=== PATIENT | male | born 1975 | race Two or more races ===

== ENCOUNTER 2018-10-07 19:04 | Emergency (ER) | payer SELFPAY ==
[~2018-10-07] VITALS: Ht 167.6 cm; Wt 78.8 kg
[2018-10-07 19:22] VITALS: BP 113/76
[2018-10-07] MEDS ORDERED: PLEASE ENTER ALLERGIES MC SCH (19:30)
[2018-10-07] MEDS ORDERED: THIAMINE 100MG TABLET PO ONE (19:30)
[2018-10-07] MEDS ORDERED: PLEASE ENTER HEIGHT AND WEIGHT MC SCH (19:30)
[2018-10-07 19:41] LABS: MEAN CORPUSCULAR HEMOGLOBIN 28.4 pg (27.5-34.5); MEAN CORPUSCULAR VOLUME 88.7 fL (81-97); MEAN PLATELET VOLUME 7.5 fL (7.4-10.4); PLATELET COUNT 209 x10^3/uL (130-400); RED BLOOD COUNT 4.78 x10^6/uL (4.38-5.82); RED CELL DISTRIBUTION WIDTH 23.4 % (9.4-14.8)
[2018-10-07 19:47] LABS: ALBUMIN 3.3 g/dL (3.4-5.0); ANION GAP 11 mmol/L (5-15); CALCIUM 7.6 mg/dL (8.5-10.1); CHLORIDE 110 mmol/L (98-107); CREATININE 0.79 mg/dL (0.7-1.3)
[2018-10-07 19:52] LABS: ALANINE AMINOTRANSFERASE 97 U/L (12-78); ALKALINE PHOSPHATASE 76 U/L (45-117); BILIRUBIN,TOTAL 0.6 mg/dL (0.2-1.0); TOTAL PROTEIN 7.6 g/dL (6.4-8.2)
--- NOTE | 2018-10-07 19:56 | NUR ---
lab called debbie 0.497 made aware
[2018-10-07 19:58] LABS: MD YES
[2018-10-07 20:01] LABS: BAND#(MANUAL) 0.04 x10^3/uL; BANDS%(MANUAL) 1 % (0-7); EOS#(MANUAL) 0.04 x10^3/uL (0.0-0.4); EOS% (MANUAL) 1 % (1-7); LYMPH#(MANUAL) 2.01 x10^3/uL (1-3.4); LYMPHS% (MANUAL) 53 % (22-44); MONOS#(MANUAL) 0.11 x10^3/uL (0.3-2.7); MONOS% (MANUAL) 3 % (2-9); SEGS% (MANUAL) 42 % (42-75)
[2018-10-07 20:02] LABS: <PLATELET ESTIMATE> ADEQUATE; <PLT MORPHOLOGY> NORMAL PLT MORPH; <RBC MORPHOLOGY> NORMAL
[2018-10-07] MEDS ORDERED: THIAMINE 100MG TABLET ONE (20:09)
== END 2018-10-07 21:33 | disposition home or self-care (01) ==
LOC: ED 21:28
DX: F10.220 Alcohol dependence with intoxication, uncomplicated (principal)
CPT/HCPCS: 36415; 80053; 80307; 85025; 99283

== ENCOUNTER 2018-12-10 18:38 | Emergency (ER) | payer SELFPAY ==
[~2018-12-10] VITALS: Ht 167.6 cm; Wt 75.0 kg
--- NOTE | 2018-12-10 18:56 | NUR ---
REPORT RECIEVED FROM DEMETRIUS CAZARES
[2018-12-10 19:47] VITALS: BP 114/81
--- NOTE | 2018-12-10 20:07 | NUR ---
PT INTOXICATED. CONTINUALLY TRYING TO GET OUT OF BED EVEN WHEN INSTRUCTED NOT TO. DIESEL ENGINE OPERATOR NOTIFIED TO WATCH PT ON MONITOR. PT AGREED TO STAY IN BED. PT SLEEPING ON GURNEY NOW.
== END 2018-12-10 22:25 | disposition home or self-care (01) ==
LOC: ED 22:20
DX: F10.220 Alcohol dependence with intoxication, uncomplicated (principal); Y90.9 Presence of alcohol in blood, level not specified
CPT/HCPCS: 99283

== ENCOUNTER 2019-05-25 04:52 | Inpatient (IN) | payer OTHER ==
[~2019-05-25] VITALS: Ht 167.6 cm; Wt 85.8 kg
[2019-05-25] MEDS ORDERED: SODIUM CHLORIDE 0.9% 1,000ML IVBOLUS ONE (05:30)
[2019-05-25] MEDS ORDERED: LORazepam 2 MG/ML, 1ML IVPush ONE ×3 (05:30→09:00)
[2019-05-25] MEDS ORDERED: LORazepam 2 MG/ML, 1ML ONE ×3 (05:30→09:04)
[2019-05-25 05:55] LABS: CHLORIDE 105 mmol/L (98-107)
--- NOTE | 2019-05-25 06:00 | NUR ---
Patient presents to ER c/o alcohol withdrawals. Patient states his last drink was yesterday. He was participating in outpatient detox programs but started drinking during it. Patient wants help to detox. Patient is moderately tremulous and slightly diaphoretic. Respirations even and unlabored.
[2019-05-25 06:03] LABS: ALANINE AMINOTRANSFERASE 72 U/L (12-78); ALBUMIN 3.4 g/dL (3.4-5.0); ALKALINE PHOSPHATASE 72 U/L (45-117); ANION GAP 13 mmol/L (5-15); BILIRUBIN,TOTAL 0.8 mg/dL (0.2-1.0); CALCIUM 8.4 mg/dL (8.5-10.1); CREATININE 0.87 mg/dL (0.7-1.3); TOTAL PROTEIN 8.2 g/dL (6.4-8.2)
[2019-05-25 06:08] LABS: MEAN CORPUSCULAR HEMOGLOBIN 25.8 pg (27.5-34.5); MEAN CORPUSCULAR HGB CONC 32.1 g/dL (33.2-36.2); MEAN CORPUSCULAR VOLUME 80.5 fL (81-97); MEAN PLATELET VOLUME 8.6 fL (7.4-10.4); PLATELET COUNT 123 x10^3/uL (130-400); RED BLOOD COUNT 4.53 x10^6/uL (4.38-5.82)
[2019-05-25 06:28] LABS: BASOPHILS # (AUTO) 0.04 x10^3/uL (0-0.1); BASOPHILS % (AUTO) 1 % (0-1); EOSINOPHILS # (AUTO) 0.03 x10^3/uL (0-0.4); EOSINOPHILS % (AUTO) 1 % (1-7); LYMPHOCYTES # (AUTO) 1.45 x10^3/uL (1-3.4); LYMPHOCYTES % (AUTO) 33 % (22-44); MD SCAN; MONOCYTES # (AUTO) 0.35 x10^3/uL (0.2-0.8); MONOCYTES % (AUTO) 8 % (2-9); NEUTROPHILS # (AUTO) 2.55 x10^3/uL (1.8-6.8); NEUTROPHILS % (AUTO) 58 % (42-75)
--- NOTE | 2019-05-25 06:57 | NUR ---
BEDSIDE REPORT FROM KAR ROMO, PT RESTING IN [facility] ON MONITOR WITH CALL LIGHT WIHTIN REACH. PT TO RECIEVE ADDITIONAL MEDICATIONS AND BE DISCHARGED BACK TO OUTPATIENT TREATMENT CENTER.
--- NOTE | 2019-05-25 07:07 | NUR ---
PER GIVE LIBRIUM 30 MIN AFTER IV ATIVAN
[2019-05-25] MEDS ORDERED: CHLORDIAZEPOXIDE 25 MG CAPSULE ONE (07:30)
[2019-05-25] MEDS ORDERED: CHLORDIAZEPOXIDE 25 MG CAPSULE PO ONE (07:30)
[2019-05-25] MEDS ORDERED: DIAZEPAM 5 MG/ML, 2ML IV ONE (08:00)
[2019-05-25] MEDS ORDERED: DIAZEPAM 5 MG/ML, 2ML ONE (08:04)
--- NOTE | 2019-05-25 08:10 | NUR ---
per MD give additional medications and reassess CIWA score. Pt medciated per mar. pt given urinal and urine sample walked to lab. pt resting in [facility] with call light within reach.
[2019-05-25 08:47] LABS: AMPHETAMINE SCREEN, URINE Negative (Negative); BARBITURATE SCREEN, URINE Negative (Negative); BENZODIAZEPINE SCREEN, URINE Negative (Negative); CANNABINOID SCREEN, URINE Negative (Negative); COCAINE SCREEN, URINE Negative (Negative); METHADONE SCREEN, URINE Negative (Negative); OPIATE SCREEN, URINE Negative (Negative)
--- NOTE | 2019-05-25 09:09 | NUR ---
Break RN note: Pt medicated with Ativan per MAR. Pt visibly tremulous throughout body, states "I still feel the same as I did when I first came in but maybe a little better." Pt able to position self for comfort, denies other needs.
[2019-05-25] MEDS ORDERED: MAGNESIUM SULFATE PMX 2GM/50ML 50 ML IV ONE (10:00)
[2019-05-25] MEDS ORDERED: MAGNESIUM SULFATE PMX 2GM/50ML 50 ML ONE (10:01)
--- NOTE | 2019-05-25 10:05 | NUR ---
PTS CIWA 17 AFTER ADDITIONAL DOSE OF ATIVAN, NOTIFIED. PT TO BE ADMITTED.
[2019-05-25] MEDS ORDERED: BACLOFEN 10 MG TABLET PO PRN (10:30)
[2019-05-25] MEDS ORDERED: ACETAMINOPHEN 325 MG TABLET PO PRN (10:30)
[2019-05-25] MEDS ORDERED: LORazepam 1MG TABLET PO PRN (10:30)
[2019-05-25] MEDS ORDERED: THIAMINE 200 MG in DEXTROSE 5% 50 ML IVPB ONE (10:30)
[2019-05-25] MEDS ORDERED: LORazepam 0.5MG TABLET PO PRN (10:30)
[2019-05-25] MEDS ORDERED: IBUPROFEN 600 MG TABLET PO PRN (10:30)
[2019-05-25] MEDS ORDERED: FOLIC ACID 5 MG/ML IM ONE (10:30)
[2019-05-25] MEDS ORDERED: KETOROLAC 30 MG/1 ML IV PRN (10:30)
[2019-05-25] MEDS ORDERED: morphine SULFATE 10 MG/ML, 1ML IVPush PRN (10:30)
[2019-05-25] MEDS ORDERED: ONDANSETRON 2MG/ML, 2ML IVPush PRN (10:30)
[2019-05-25] MEDS ORDERED: LORazepam 2 MG/ML, 1ML IV PRN ×4 (10:30)
[2019-05-25] MEDS ORDERED: hydrALAzine 20 MG/ML, 1ML IVPush PRN (10:30)
[2019-05-25] MEDS ORDERED: ONDANSETRON ODT 4 MG PO PRN (10:30)
--- NOTE | 2019-05-25 11:05 | NUR ---
ATIVAN HELD FOR PT RESP 10, PT SLEEPING IN BED. ON MONITOR. ON ROOM AIR. CALL LIGHT WITHIN REACH.
[2019-05-25] MEDS ORDERED: LORazepam 1MG TABLET ONE (12:13)
[2019-05-25] MEDS: LORazepam 2 MG/ML, 1ML IV PRN ×3 (12:15→22:06)
--- NOTE | 2019-05-25 12:16 | NUR ---
PT MEDICATED PER MAR FOR CIWA SCORE OF 11
--- NOTE | 2019-05-25 12:42 | NUR ---
ATTEMPTED TO CALL REPORT, NO ANSWER
--- NOTE | 2019-05-25 13:14 | NUR ---
ATTEMPT TO CALL REPORT X2, PLACED ON HOLD >8MIN
--- NOTE | 2019-05-25 13:29 | NUR ---
REPORT TO CRISTAL ROMO
[2019-05-25] MEDS: LORazepam 1MG TABLET PO PRN ×2 (14:05→15:29)
[2019-05-25] MEDS ORDERED: SERT50TA PO (14:24)
[2019-05-25] MEDS ORDERED: TRAZ-96 PO (14:24)
[2019-05-25] MEDS ORDERED: THIAMINE 100MG TABLET PO ONE (14:30)
[2019-05-25] MEDS ORDERED: FOLIC ACID 1 MG TABLET PO ONE (14:30)
[2019-05-25 15:05] VITALS: BP 162/99
[2019-05-25] MEDS: CHLORDIAZEPOXIDE 25 MG CAPSULE PO SCH ×2 (15:29→22:06)
[2019-05-25] MEDS: D5%-0.45NACL+KCL 20MEQ 1,000 ML IV SCH (17:56)
[2019-05-25] MEDS: ENOXAPARIN 40 MG/0.4 ML SQ SCH (18:52)
[2019-05-25 20:26] VITALS: BP 130/84
[2019-05-26 01:18] VITALS: BP 129/85
[2019-05-26] MEDS: D5%-0.45NACL+KCL 20MEQ 1,000 ML IV SCH ×2 (04:23→15:36)
[2019-05-26] MEDS: CHLORDIAZEPOXIDE 25 MG CAPSULE PO SCH ×4 (04:24→22:19)
[2019-05-26 06:19] LABS: LYMPHOCYTES % (AUTO) 31 % (22-44); MEAN CORPUSCULAR HGB CONC 32.4 g/dL (33.2-36.2); MEAN CORPUSCULAR VOLUME 80.2 fL (81-97); MEAN PLATELET VOLUME 9.3 fL (7.4-10.4); NEUTROPHILS % (AUTO) 60 % (42-75); PLATELET COUNT 109 x10^3/uL (130-400); RED BLOOD COUNT 4.81 x10^6/uL (4.38-5.82); RED CELL DISTRIBUTION WIDTH 22.6 % (9.4-14.8)
[2019-05-26 06:20] LABS: BASOPHILS % (AUTO) 0 % (0-1); EOSINOPHILS # (AUTO) 0.05 x10^3/uL (0-0.4); EOSINOPHILS % (AUTO) 2 % (1-7); LYMPHOCYTES # (AUTO) 0.95 x10^3/uL (1-3.4); MD SCAN; MONOCYTES # (AUTO) 0.23 x10^3/uL (0.2-0.8); MONOCYTES % (AUTO) 7 % (2-9); NEUTROPHILS # (AUTO) 1.87 x10^3/uL (1.8-6.8)
[2019-05-26 06:21] LABS: CHLORIDE 106 mmol/L (98-107)
[2019-05-26 06:28] LABS: % IRON SATURATION 16 % (20-55); ALANINE AMINOTRANSFERASE 67 U/L (12-78); ALKALINE PHOSPHATASE 67 U/L (45-117); ANION GAP 6 mmol/L (5-15); CALCIUM 8.2 mg/dL (8.5-10.1); CREATININE 0.62 mg/dL (0.7-1.3); IRON LEVEL 70 mcg/dL (65-175); TOTAL IRON BINDING CAPACITY 451 mcg/dL (250-450); TOTAL PROTEIN 7.9 g/dL (6.4-8.2)
[2019-05-26] MEDS: LORazepam 1MG TABLET PO PRN ×2 (08:25→10:45)
[2019-05-26 10:49] VITALS: BP 134/94
[2019-05-26] MEDS: LORazepam 2 MG/ML, 1ML IV PRN ×5 (11:45→22:53)
[2019-05-26 14:00] VITALS: BP 134/62
[2019-05-26] MEDS: FERROUS SULFATE 325 MG TABLET PO SCH (15:36)
[2019-05-26] MEDS: ENOXAPARIN 40 MG/0.4 ML SQ SCH (18:34)
[2019-05-26 20:14] VITALS: BP 142/93
[2019-05-27 02:06] VITALS: BP 158/87
[2019-05-27] MEDS: LORazepam 2 MG/ML, 1ML IV PRN ×2 (02:25→08:27)
[2019-05-27] MEDS: D5%-0.45NACL+KCL 20MEQ 1,000 ML IV SCH ×2 (02:27→12:17)
[2019-05-27] MEDS: CHLORDIAZEPOXIDE 25 MG CAPSULE PO SCH (04:03)
[2019-05-27 06:19] VITALS: BP 138/95
[2019-05-27] MEDS: FERROUS SULFATE 325 MG TABLET PO SCH ×2 (08:26→12:17)
[2019-05-27] MEDS ORDERED: THIAMINE 100MG TABLET PO SCH (09:00)
[2019-05-27] MEDS ORDERED: FOLIC ACID 1 MG TABLET PO SCH (09:00)
[2019-05-27] MEDS ORDERED: CHLORDIAZEPOXIDE 25 MG CAPSULE PO SCH (12:30)
[2019-05-27 13:05] VITALS: BP 136/93
[2019-05-27] MEDS ORDERED: FOLI-17 PO (16:08)
[2019-05-27] MEDS ORDERED: FERR-51 PO (16:08)
[2019-05-27] MEDS ORDERED: THIA100T67 PO (16:08)
== END 2019-05-27 17:19 | disposition home or self-care (01) | DRG 897 ==
LOC: ED 05:46 → EDIP 10:00 → 4EST 13:57
PROVIDERS: ADMIT Hospitalist; ATTEND Hospitalist
DX: F10.239 Alcohol dependence with withdrawal, unspecified (principal); E87.1 Hypo-osmolality and hyponatremia; E87.2 Acidosis; D61.818 Other pancytopenia; D50.9 Iron deficiency anemia, unspecified; F17.200 Nicotine dependence, unspecified, uncomplicated; F32.9 Major depressive disorder, single episode, unspecified; E87.6 Hypokalemia; E83.42 Hypomagnesemia; R00.0 Tachycardia, unspecified; R74.0 Nonspecific elevation of levels of transaminase and lactic acid dehydrogenase [LDH]; Z90.49 Acquired absence of other specified parts of digestive tract
CPT/HCPCS: 36415; 71045; 80053; 80307; 82728; 83540; 83550; 83735; 84100; 85025; 93005; 99285; G0378; J1650; J3360; J2060; J3475; J3480; J7030

== ENCOUNTER 2019-06-28 17:09 | Emergency (ER) | payer MEDICAID ==
[~2019-06-28] VITALS: Ht 167.6 cm; Wt 87.9 kg
[~2019-06-28 17:09] MED LIST: FERR-51 PO; FOLI-17 PO; SERT50TA PO; THIA100T67 PO; TRAZ-96 PO
[2019-06-28] MEDS ORDERED: SODIUM CHLORIDE 0.9% 1,000ML IVBOLUS ONE (17:30)
[2019-06-28] MEDS ORDERED: LORazepam 2 MG/ML, 1ML IVPush ONE (17:30)
[2019-06-28] MEDS ORDERED: LORazepam 2 MG/ML, 1ML ONE (17:35)
[2019-06-28 17:57] LABS: ALANINE AMINOTRANSFERASE 66 U/L (12-78); ALBUMIN 3.2 g/dL (3.4-5.0); ANION GAP 10 mmol/L (5-15); CALCIUM 8.5 mg/dL (8.5-10.1); CHLORIDE 96 mmol/L (98-107); CREATININE 0.99 mg/dL (0.7-1.3)
[2019-06-28 17:59] LABS: ALKALINE PHOSPHATASE 68 U/L (45-117); BILIRUBIN,TOTAL 0.8 mg/dL (0.2-1.0); TOTAL PROTEIN 8.6 g/dL (6.4-8.2)
[2019-06-28 18:05] LABS: BASOPHILS # (AUTO) 0.03 x10^3/uL (0-0.1); BASOPHILS % (AUTO) 0 % (0-1); EOSINOPHILS # (AUTO) 0.04 x10^3/uL (0-0.4); EOSINOPHILS % (AUTO) 0 % (1-7); LYMPHOCYTES # (AUTO) 0.94 x10^3/uL (1-3.4); LYMPHOCYTES % (AUTO) 11 % (22-44); MD NO; MEAN CORPUSCULAR HEMOGLOBIN 27.3 pg (27.5-34.5); MEAN CORPUSCULAR HGB CONC 33.5 g/dL (33.2-36.2); MEAN CORPUSCULAR VOLUME 81.4 fL (81-97); MEAN PLATELET VOLUME 8.5 fL (7.4-10.4); MONOCYTES # (AUTO) 0.34 x10^3/uL (0.2-0.8); MONOCYTES % (AUTO) 4 % (2-9); NEUTROPHILS # (AUTO) 7.53 x10^3/uL (1.8-6.8); NEUTROPHILS % (AUTO) 85 % (42-75); PLATELET COUNT 155 x10^3/uL (130-400); RED BLOOD COUNT 4.81 x10^6/uL (4.38-5.82)
[2019-06-28 19:00] LABS: RAPID INFLUENZA A Negative (Negative); RAPID INFLUENZA B Negative (Negative)
[2019-06-28] MEDS ORDERED: IBUPROFEN 200 MG TABLET PO ONE (19:00)
[2019-06-28] MEDS ORDERED: ACETAMINOPHEN 500 MG TABLET PO ONE (19:00)
--- NOTE | 2019-06-28 19:00 | NUR ---
REPORT RECEIVED FROM DEMETRIUS HIRSCH. ASSUMED CARE OF PT AT THIS TIME. PT AO X 4. SKIN WARM AND DRY. RESP EVEN AND UNLABORED. SLIGHT TREMOR NOTED WHEN PT HOLDS HANDS OUT. PT REPORTS SLIGHT GARDNER AND NAUSEA. PT DENIES HALLUCINATIONS. PT AWARE WE ARE WAITING FOR LAB/IMAGING RESULTS. CALL LIGHT WITHIN REACH. WILL CONT TO MONITOR PT.
[2019-06-28] MEDS ORDERED: ACETAMINOPHEN 500 MG TABLET ONE (19:11)
[2019-06-28] MEDS ORDERED: IBUPROFEN 600 MG TABLET ONE (19:11)
--- NOTE | 2019-06-28 20:03 | NUR ---
NOAH OSULLIVAN AT BEDSIDE FOR RECHECK/EXPLANATION OF RESULTS AT THIS TIME. PT AO X 4. SKIN WARM AND DRY. RESP EVEN AND UNLABORED. PT NST 110'S ON WATERPROOFING MACHINE OPERATOR. PT REQUESTING PAIN MEDICATION. NOAH OSULLIVAN AWARE, AWAITING ORDERS. CALL LIGHT WITHIN REACH. WILL CONT TO MONITOR PT.
[2019-06-28 20:12] LABS: MICROSCOPIC NOT IND
[2019-06-28 20:13] LABS: CULTURE INDICATED? NO
[2019-06-28] MEDS ORDERED: POTASSIUM CHLORIDE 20 MEQ TAB.ER.PRT PO ONE (20:30)
[2019-06-28] MEDS ORDERED: POTASSIUM CHLORIDE 20 MEQ TAB.ER.PRT ONE (20:59)
[2019-06-28] MEDS ORDERED: BICILLIN-LA 1,200,000 UNITS/2 ML IM ONE (21:00)
--- NOTE | 2019-06-28 21:29 | NUR ---
PT SLEEPING ON GURNEY, SNORING. PT AWAKENS TO NAME BEING CALLED. PT SLIGHTLY DIAPHORETIC. SKIN WARM AND PINK. PT AO X 4. SLIGHT TREMORS NOTED. NOAH OSULLIVAN AWARE. PT MEDICATED ORDERED FOR INFECTION AND HYPERKALEMIA. CALL LIGHT WITHIN REACH. WILL CONT TO MONITOR PT.
--- NOTE | 2019-06-28 22:11 | NUR ---
PT SITTING UP ON GURNEY. PT REQUESTED AND WAS PROVIDED WITH SPRITE. PT AOX 4. RESP EVEN AND UNLABORED. NO ACUTE DISTRESS NTOED. PT'S SKIN NOW PWD. TREMORS DECREASED. PT STEADY UPON AMBULATION TO DC DESK.
[2019-06-28 22:12] VITALS: BP 139/92
--- NOTE | 2019-06-28 22:13 | NUR ---
RN ATTEMPTED TO CALL [facility] FOR REPORT. NUMBER LISTED ONLINE AND IN THROUGHPUT PHONE GIVES ERROR MESSAGE STATING "THIS NUMBER IS NOT ASSIGNED".
== END 2019-06-28 22:26 | disposition home or self-care (01) ==
LOC: ED 22:00
DX: J02.0 Streptococcal pharyngitis (principal)
CPT/HCPCS: 36415; 71045; 80053; 80307; 81003; 83690; 85025; 87400; 87880; 96372; 96374; 99285; J0561; J2060; J7030

== ENCOUNTER 2019-08-01 16:15 | Emergency (ER) | payer MEDICAID ==
[~2019-08-01] VITALS: Ht 167.6 cm; Wt 87.0 kg
--- NOTE | 2019-08-01 16:32 | NUR ---
BREAK RN: JAYLYN ROSE FOR A MGLF. PT REPORTS HE HAS NOT BEEN DRINKING HIS USUAL AMOUNT BECAUSE HE WAS TRYING TO GET A JOB. HE HAD A JOB INTERVIEW THIS MORNING. PT TOOK TWO UNKNOWN PILLS FROM A FRIEND. AFTER TAKING THE PILLS THE PATIENT TRIPPED AND FELL. VS STABLE. PT DID NOT HIS HIS HEAD. BILATERAL ABRASIONS NOTED TO KNEES. PT C/O LEFT SHOULDER PAIN, LEFT KNEE PAIN. VS STABLE. EKG DONE. PT INSTRUCTED TO USE THE CALL LIGHT. BLANKET GIVEN. WILL CONTINUE TO MONITOR WHILE PRIMARY RN IS ON BREAK.
--- NOTE | 2019-08-01 16:50 | NUR ---
REPORT GIVEN TO DEMETRIUS JACOB
[2019-08-01] MEDS ORDERED: LORazepam 2 MG/ML, 1ML ONE (17:28)
[2019-08-01] MEDS ORDERED: LORazepam 2 MG/ML, 1ML IVPush ONE (17:30)
[2019-08-01 17:31] LABS: BASOPHILS # (AUTO) 0.02 x10^3/uL (0-0.1); BASOPHILS % (AUTO) 1 % (0-1); EOSINOPHILS # (AUTO) 0.02 x10^3/uL (0-0.4); EOSINOPHILS % (AUTO) 1 % (1-7); LYMPHOCYTES % (AUTO) 24 % (22-44); MD NO; MEAN CORPUSCULAR HEMOGLOBIN 27.8 pg (27.5-34.5); MEAN CORPUSCULAR HGB CONC 32.7 g/dL (33.2-36.2); MEAN CORPUSCULAR VOLUME 84.9 fL (81-97); MONOCYTES # (AUTO) 0.27 x10^3/uL (0.2-0.8); MONOCYTES % (AUTO) 6 % (2-9); NEUTROPHILS % (AUTO) 69 % (42-75); PLATELET COUNT 254 x10^3/uL (130-400); RED BLOOD COUNT 4.17 x10^6/uL (4.38-5.82); RED CELL DISTRIBUTION WIDTH 20.2 % (9.4-14.8)
[2019-08-01 17:40] LABS: ALANINE AMINOTRANSFERASE 60 U/L (12-78); ALBUMIN 3.5 g/dL (3.4-5.0); ANION GAP 13 mmol/L (5-15); CALCIUM 8.2 mg/dL (8.5-10.1); CHLORIDE 103 mmol/L (98-107); CREATININE 0.76 mg/dL (0.7-1.3)
[2019-08-01 17:42] LABS: ALKALINE PHOSPHATASE 56 U/L (45-117); BILIRUBIN,TOTAL 0.4 mg/dL (0.2-1.0)
[2019-08-01] MEDS ORDERED: SODIUM CHLORIDE 0.9% 1,000ML IVBOLUS ONE ×2 (18:00→20:00)
[2019-08-01] MEDS ORDERED: SODIUM CHLORIDE FLUSH 10ML SYR IVF ONE (18:30)
--- NOTE | 2019-08-01 19:00 | NUR ---
PT IS RESTING IN [facility]. DARY. PILYS
[2019-08-01 20:05] VITALS: BP 114/66
--- NOTE | 2019-08-01 20:05 | NUR ---
PT RESTING IN [facility]. RESPIRATIONS EQUAL AND UNLABORED.
== END 2019-08-01 21:52 | disposition home or self-care (01) ==
LOC: ED 16:36
DX: F10.229 Alcohol dependence with intoxication, unspecified (principal); M25.512 Pain in left shoulder; M25.562 Pain in left knee; M54.9 Dorsalgia, unspecified; R51 Headache; F17.200 Nicotine dependence, unspecified, uncomplicated; W18.30XA Fall on same level, unspecified, initial encounter; Y93.89 Activity, other specified; Y92.410 Unspecified street and highway as the place of occurrence of the external cause; Y99.8 Other external cause status
CPT/HCPCS: 36415; 70450; 72072; 72125; 73030; 80053; 80307; 85025; 93005; 96374; 99285; J2060; J7030